=== PATIENT | female | born 1990 ===

== ENCOUNTER 2017-03-18 06:39 | Inpatient (IN) | payer BC, OTHER ==
[2017-03-11 09:59] VITALS: BMI 28.3
[2017-03-18 07:22] LABS: HEMOGLOBIN 11.7 g/dL (12.0-16.0); MEAN CELL VOLUME 80.5 fl (81.0-99.0); MEAN CORPUSCULAR HEMOGLOBIN 25.8 pg (27.0-31.0); MEAN CORPUSCULAR HGB CONC 32.1 g/dL (33.0-37.0); RBC 4.55 Mil/uL (3.80-5.20); RED CELL DISTRIBUTION WIDTH 15.2 % (11.5-14.5); WHITE BLOOD COUNT 6.6 K/uL (4.8-10.8)
[2017-03-18 07:28] LABS: BLOOD UREA NITROGEN 16 mg/dl (7-17); CALCIUM 9.1 mg/dL (8.4-10.2); GFR AFRICAN-AMERICAN > 60; GFR NON-AFRICAN AMERICAN > 60
[2017-03-18] MEDS ORDERED: Propofol 10 mg/ml Inj (20 ML) ONE ×2 (07:29→10:11)
[2017-03-18] MEDS ORDERED: Succinylcholine 200 mg/10 ml Inj IV ONE (07:31)
[2017-03-18] MEDS ORDERED: Midazolam 2 MG/2 ML VIAL ONE (07:31)
[2017-03-18] MEDS ORDERED: ePHEDrine 50 mg/ml Inj ONE (07:31)
[2017-03-18] MEDS ORDERED: Lidocaine 4% (Laryng-O-Jet) Kit MM ONE (07:32)
[2017-03-18] MEDS ORDERED: Rocuronium 10 mg/ml (5 ml) ONE (07:33)
[2017-03-18] MEDS ORDERED: Vasopressin 20 Units/ml Inj ONE (07:53)
[2017-03-18] MEDS ORDERED: Bupivacaine 0.5% Inj(30mL) ONE (07:54)
--- NOTE | 2017-03-18 08:05 | CP.PCM.HP ---
History of Present Illness - History of Present Illness History of Present Illness: The patient is a 26 y/o who presents to the hospital for managment of symptomatic fibroid uterus Present on Admission - Present on Admission Any Indicators Present on Admission: No Review of Systems - Reproductive: Female Reproductive:Female: Heavy Menses Additional comments: pelvic pain pressure Past Patient History - Past Medical History & Family History Past Medical History?: No - Past Social History Smoking Status: Never Smoked Chewing Tobacco Use: No Cigar Use: No Alcohol: Occasional Drugs: Denies - CARDIAC Hx Cardiac Disorders: No - PULMONARY Hx Respiratory Disorders: No - NEUROLOGICAL Hx Neurological Disorder: No - HEENT Hx HEENT Problems: No - RENAL Hx Chronic Kidney Disease: No - ENDOCRINE/METABOLIC Hx Endocrine Disorders: No - HEMATOLOGICAL/ONCOLOGICAL Hx Blood Disorders: No - INTEGUMENTARY Hx Dermatological Problems: No - MUSCULOSKELETAL/RHEUMATOLOGICAL Hx Musculoskeletal Disorders: No - GASTROINTESTINAL Hx Gastrointestinal Disorders: No - GENITOURINARY/GYNECOLOGICAL Hx Genitourinary Disorders: No - PSYCHIATRIC Hx Psychophysiologic Disorder: No - SURGICAL HISTORY Hx Surgeries: No - ANESTHESIA Hx Anesthesia: No Hx Anesthesia Reactions: No Hx Malignant Hyperthermia: No Has any member of the family had a problem w/ anesthesia?: No Meds Allergies/Adverse Reactions: Allergies Allergy/AdvReac Type Severity Reaction Status Date / Time No Known Allergies Allergy Verified 03/11/17 09:59 Results - Vital Signs Recent Vital Signs: Last Vital Signs Temp 98.3 F 03/18/17 07:15 Pulse 78 03/18/17 07:15 Resp 18 03/18/17 07:15 BP 132/72 03/18/17 07:15 Pulse Ox 99 03/18/17 07:15 - Labs Result Diagrams: 03/18/17 07:00 03/18/17 07:00 Labs: Laboratory Results - last 24 hr 03/18/17 03/18/17 03/18/17 07:00 07:00 07:00 WBC 6.6 RBC 4.55 Hgb 11.7 L Hct 36.6 MCV 80.5 L MCH 25.8 L MCHC 32.1 L RDW 15.2 H Plt Count 174 Sodium 140 Potassium 4.3 Chloride 107 Carbon Dioxide 23 Anion Gap 14 BUN 16 Creatinine 0.6 L Est GFR ( Amer) > 60 Est GFR (Non-Af Amer) > 60 Random Glucose 101 Calcium 9.1 BBK History Checked No verified bt Assessment & Plan - Assessment and Plan (Free Text) Assessment: 26 y/o symptomatic fibroid uterus informed consent obtained discussed r/b/a to procedure discusssed bleeding infection organ injury to bowel bladder ureter all questions answered patient agree to plan of care will admit for post op pain management - Date & Time Date: 03/18/17 Time: 08:05
[2017-03-18] MEDS ORDERED: Dexamethasone 4 mg/1 ml ONE (08:22)
[2017-03-18] MEDS ORDERED: Lactated Ringer's 1,000 ML IV ONE ×3 (08:41→09:50)
[2017-03-18] MEDS ORDERED: Desflurane Inhalation Anesthetic Liq (240 ml) ONE (09:22)
[2017-03-18] MEDS ORDERED: HYDROmorphone 0.5 mg/0.5 ml ISec ONE (10:27)
[2017-03-18] MEDS ORDERED: Naloxone 0.4 mg/ml Inj (Adult) IVP PRN (10:27)
[2017-03-18] MEDS ORDERED: DiphenhydrAMINE 50 mg/ml Inj IVP PRN (10:27)
--- NOTE | 2017-03-18 10:33 | PCM.SURG1 ---
Surgeon's Initial Post Op Note - Surgeon's Notes Surgeon: Dr. Mendoza Biologist: Alphonse German PGY2 Type of Anesthesia: General Endo Pre-Operative Diagnosis: large fibroids Operative Findings: multiple fibroids, endometrioma/hemorrhagic cyst. Post-Operative Diagnosis: Fibroids, hemorrhagic L cyst Operation Performed: Laparotomy, meyomectomy, cystectomy. Specimen/Specimens Removed: 17 multiple size fibroids. L endometrioma/ hemorrhagic cyst Estimated Blood Loss: EBL {In ML}: 100 Blood Products Given: N/A Drains Used: No Drains Post-Op Condition: Good Date of Surgery/Procedure: 03/18/17 Time of Surgery/Procedure: 10:35
[2017-03-18] MEDS: HYDROmorphone 0.5 mg/0.5 ml ISec IVP PRN ×3 (10:40→11:25)
[2017-03-18] MEDS ORDERED: ceFAZolin 2 GM in Sodium Chloride 0.9% 100 ML IVPB ONE (12:38)
[2017-03-18] MEDS: Lactated Ringer's 1,000 ML IV SCH ×3 (13:34→21:32)
[2017-03-18] MEDS: Sodium Chloride 0.9% 1,000 ML IV SCH ×2 (13:35→21:33)
--- NOTE | 2017-03-18 19:26 | OP ---
PROCEDURE DATE: PREOPERATIVE DIAGNOSIS: Symptomatic fibroid uterus. POSTOPERATIVE DIAGNOSIS: Symptomatic fibroid uterus. OPERATION PERFORMED: Laparotomy, myomectomy, left ovarian cystectomy. SURGEON: Dr. Allan Mendoza. CHANNEL PARTNERS: Dr. Nikko Roy. TYPE OF ANESTHESIA: General. ANESTHESIA ADMINISTERED BY: Dr. Huntley. OPERATIVE FINDINGS: A 20-week size uterus with multiple fibroids, the largest approximately 10 cm in size,17 fibroids were removed. There was a normal tubes bilaterally. Right ovary appeared normal, left ovary has a what appear to be hemorrhagic cyst possible endometrioma. The assistant manager/embalmer was Dr. Nikko Roy, he was instrumental in the care of the patient. He helped to create exposure obtaining hemostasis. He helped to extract the fibroids and was helpful in closing the patient. Procedure would not have been possible without his assistance. IV FLUID INTAKE: The patient received approximately 2500 mL of D5 in OR intraoperatively. ESTIMATED BLOOD LOSS: 500 mL. URINE OUTPUT: Chamberlain catheter put out approximately 500 mL of clear urine. DESCRIPTION OF PROCEDURE: After informed consent was obtained, the patient was taken to the operating room where she was general anesthesia. The patient was prepped and draped in the usual sterile fashion. A Pfannenstiel skin incision was then made with the scalpel carried down to the underlying layer of fascia. The fascia was nicked in the midline. The fascial incision was then extended laterally with a curved Gordon scissors. The superior aspect of the fascial incision was then grasped with Nelda clamps, elevated up and the rectus muscles were dissected off using both sharp and blunt dissection. Attention was then turned to the inferior aspect of the fascial incision which in a similar fashion was grasped with curved clamps and elevated up and the rectus muscles were dissected off using both sharp and blunt dissection. The rectus muscles were then in the midline. The peritoneum denitrified and entered sharply with the Metzenbaum scissors. The peritoneal incision was then extended superiorly and inferiorly with good visualization of the bladder. The abdomen was then surveyed with findings noted above. The uterus was manually extracted from the abdomen. There was a prominent 10 cm fundal myoma and multiple smaller myomas located posteriorly. Attention was then turned to the posterior aspect of this uterus and was injected with Pitocin, approximately 4 cm vertical incision was made and using breast clamps, the fibroids were extracted using blunt and sharp dissection. This procedure was repeated serially to approximately 16 fibroids were extracted. Attention was then turned to the uterine defect and it was closed in layers. The myometrium was closed with 0-Vicryl in a running locked fashion. A second layer was used to reapproximate the myometrium and it was closed in a running locked fashion. The serosa was closed with 2-0 in a running fashion. Hemostasis was noted. Attention was then turned to the large fundal myoma. Pitocin was interacted and the vertical incision was made with a fibroid. The fibroid was extracted using both sharp and blunt dissection.. All specimens were sent to pathology. The uterine defect was repaired with 0-Vicryl in a running locked fashion. The myometrium was closed with 0-Vicryl in a running locked fashion. The serosa was closed with a Vicryl in a running fashion. Attention was then turned to the left ovarian cyst where ovarian cortex was scored. The cyst wall was dissected using both sharp and blunt dissection. The ovary was closed with 2-0 Vicryl. Hemostasis was noted. The abdomen was then copiously irrigated. The irrigant was removed with a suction device. Hemostasis was noted. We then proceed to close the patient. The peritoneum was closed with 2-0 Vicryl in a running fashion. The muscle was reapproximated with 0-Vicryl in an interrupted fashion. The fascia was closed with 0-Vicryl in a running fashion. The skin was closed with 4-0 Carlin needle. All sponge, lap, needle and instrument counts were correct x2, and the patient was taken to the recovery room in awake and stable condition. Allan Mendoza MD
[2017-03-19] MEDS: Lactated Ringer's 1,000 ML IV SCH ×2 (02:25→10:21)
[2017-03-19] MEDS ORDERED: ceFAZolin 1 GM in Sodium Chloride 0.9% 100 ML IVPB ONE (06:00)
[2017-03-19] MEDS: Sodium Chloride 0.9% 1,000 ML IV SCH (06:50)
--- NOTE | 2017-03-19 08:28 | CP.PCM.PN ---
Subjective - Date & Time of Evaluation Date of Evaluation: 03/19/17 Time of Evaluation: 08:26 - Subjective Subjective: POWER PRESS TENDER for Dr. Mendoza Pt s&e. Pt had surgery yesterday and tolerated it well. Denies F/C/N/V/D/CP/ SOB. Pain controlled. Objective - Vital Signs/Intake and Output Vital Signs (last 24 hours): Temp Pulse Resp BP Pulse Ox 98.7 F 77 20 108/65 100 03/19/17 08:24 03/19/17 08:24 03/19/17 08:24 03/19/17 08:24 03/19/17 08:24 - Medications Medications: Current Medications Acetaminophen (Tylenol 325mg Tab) 650 mg PO Q4 PRN PRN Reason: Fever >100.4 F Diphenhydramine HCl (Benadryl) 25 mg IVP Q6 PRN PRN Reason: Itching / Pruritus Hydromorphone HCl (Dilaudid) 0.5 mg IVP Q5M PRN PRN Reason: Pain, moderate (4-7) Last Admin: 03/18/17 11:25 Dose: 0.5 mg Hydromorphone HCl (Dilaudid 0.2 Mg/Ml Cracking Machine Operator) 0 mg IV PRN PRN; Protocol PRN Reason: Pain, moderate (4-7) Last Admin: 03/19/17 07:01 Dose: 6 mg Lactated Ringer's (Lactated Ringer's) 1,000 mls @ 125 mls/hr IV .Q8H [facility] Last Admin: 03/19/17 02:25 Dose: Not Given Sodium Chloride (Sodium Chloride 0.9%) 1,000 mls @ 100 mls/hr IV .Q10H [facility] Stop: 03/19/17 10:39 Last Admin: 03/19/17 06:50 Dose: Not Given Ibuprofen (Motrin Tab) 800 mg PO Q8 DAI Naloxone HCl (Narcan) 0.1 mg IVP Q2M PRN PRN Reason: Opiate reversal Ondansetron HCl (Zofran Inj) 4 mg IVP Q4 PRN PRN Reason: Nausea/Vomiting Last Admin: 03/18/17 17:34 Dose: 4 mg - Labs Labs: 03/18/17 07:00 03/18/17 07:00 - Constitutional Appears: No Acute Distress - Head Exam Head Exam: ATRAUMATIC, NORMAL INSPECTION, NORMOCEPHALIC - Eye Exam Eye Exam: EOMI, Normal appearance, PERRL Pupil Exam: NORMAL ACCOMODATION, PERRL - ENT Exam ENT Exam: Mucous Membranes Moist, Normal Exam
[2017-03-19] MEDS ORDERED: Oxycodone/Acetaminophen 5/325 mg Tab PO PRN (11:30)
[2017-03-19 12:08] LABS: BASO % 0.3 % (0.0-2.0); EOS % 0.1 % (0.0-4.0); HEMOGLOBIN 9.2 g/dL (12.0-16.0); LYMPH # 1.2 K/uL (1.0-4.3); LYMPH % 11.3 % (20.0-40.0); MEAN CORPUSCULAR HGB CONC 32.5 g/dL (33.0-37.0); MEAN PLATELET VOLUME 8.5 fl (7.2-11.7); MONO # 1.1 K/uL (0.0-0.8); MONO % 10.6 % (0.0-10.0); NEUT # 8.1 K/uL (1.8-7.0); NEUT % 77.7 % (50.0-75.0); RBC 3.54 Mil/uL (3.80-5.20); WHITE BLOOD COUNT 10.4 K/uL (4.8-10.8)
[2017-03-19] MEDS: Simethicone 80 mg Chewtab PO PRN (20:34)
[2017-03-20 04:22] VITALS: O2SAT 98
[2017-03-20] MEDS: Simethicone 80 mg Chewtab PO PRN ×2 (06:38→09:55)
[2017-03-20 08:25] VITALS: BP 105/68; PULSE 86; RESP 20; TEMP 99.8
[2017-03-20] MEDS: Lactated Ringer's 1,000 ML IV SCH ×2 (09:56→10:03)
--- NOTE | 2017-03-20 12:18 | CP.PCM.DIS ---
Provider - Provider Date of Admission: 03/18/17 12:09 Attending physician: Allan Mendoza MD Primary care physician: Allan Mendoza MD Time Spent in preparation of Discharge (in minutes): 35 Diagnosis - Discharge Diagnosis (1) Fibroid, uterine Status: Acute Hospital Course - Lab Results Lab Results: Most Recent Lab Values WBC 10.4 K/uL (4.8-10.8) D 03/19/17 11:20 RBC 3.54 Mil/uL (3.80-5.20) L 03/19/17 11:20 Hgb 9.2 g/dL (12.0-16.0) L D 03/19/17 11:20 Hct 28.3 % (34.0-47.0) L 03/19/17 11:20 MCV 80.0 fl (81.0-99.0) L 03/19/17 11:20 MCH 26.0 pg (27.0-31.0) L 03/19/17 11:20 MCHC 32.5 g/dL (33.0-37.0) L 03/19/17 11:20 RDW 15.0 % (11.5-14.5) H 03/19/17 11:20 Plt Count 134 K/uL (130-400) 03/19/17 11:20 MPV 8.5 fl (7.2-11.7) 03/19/17 11:20 Neut % (Auto) 77.7 % (50.0-75.0) H 03/19/17 11:20 Lymph % (Auto) 11.3 % (20.0-40.0) L 03/19/17 11:20 [place] % (Auto) 10.6 % (0.0-10.0) H 03/19/17 11:20 Eos % (Auto) 0.1 % (0.0-4.0) 03/19/17 11:20 Baso % (Auto) 0.3 % (0.0-2.0) 03/19/17 11:20 Neut # 8.1 K/uL (1.8-7.0) H 03/19/17 11:20 Lymph # 1.2 K/uL (1.0-4.3) 03/19/17 11:20 [place] # 1.1 K/uL (0.0-0.8) H 03/19/17 11:20 Eos # 0.0 K/uL (0.0-0.7) 03/19/17 11:20 Baso # 0.0 K/uL (0.0-0.2) 03/19/17 11:20 Sodium 140 mmol/l (132-148) 03/18/17 07:00 Potassium 4.3 MMOL/L (3.6-5.0) 03/18/17 07:00 Chloride 107 mmol/L (98-107) 03/18/17 07:00 Carbon Dioxide 23 mmol/L (22-30) 03/18/17 07:00 Anion Gap 14 (10-20) 03/18/17 07:00 BUN 16 mg/dl (7-17) 03/18/17 07:00 Creatinine 0.6 mg/dL (0.7-1.2) L 03/18/17 07:00 Est GFR ( Amer) > 60 03/18/17 07:00 Est GFR (Non-Af Amer) > 60 03/18/17 07:00 Random Glucose 101 mg/dL (65-105) 03/18/17 07:00 Calcium 9.1 mg/dL (8.4-10.2) 03/18/17 07:00 Blood Type O POSITIVE 03/18/17 07:00 Blood Type Confirm O POSITIVE 03/18/17 09:50 Antibody Screen Negative 03/18/17 07:00 BBK History Checked No verified bt 03/18/17 07:00 - Hospital Course Hospital Course: 26 F who presents to the hospital for management of symptomatic fibroid uterus. On 03/18 patient had Laparotomy, myomectomy, and cystectomy where she had 17 multiple size fibroids and Left endometrioma/hemorrhagic cyst removed. Patient recovering from surgery. Her vital signs stable and labs within normal limits. Patient tolerating oral intake and passing gas. Patient is ambulating without difficulty. Hospital course otherwise uneventful. Patient is medically stable for discharge as per Dr. Mendoza. Patient is to take Motrin and Percocet as prescribed for pain. Patient is to follow up with Dr. Mendoza within 1 week of discharge. Refrain from any heavy lifting. Keep incisions clean and dry. Eat soups, salads, fruits, and vegetable rich diet at least until BM. Please call Dr. Mendoza for any issues. Discharge Exam - Head Exam Head Exam: ATRAUMATIC, NORMAL INSPECTION, NORMOCEPHALIC - Eye Exam Eye Exam: Normal appearance - ENT Exam ENT Exam: Mucous Membranes Moist - Respiratory Exam Respiratory Exam: NORMAL BREATHING PATTERN - Cardiovascular Exam Cardiovascular Exam: REGULAR RHYTHM - GI/Abdominal Exam GI & Abdominal Exam: Soft, Tenderness (at incisions). absent: Distended, Firm, Guarding, Rebound, Rigid - Back Exam Back exam: absent: CVA tenderness (L), CVA tenderness (R) - Neurological Exam Neurological exam: Alert, CN II-XII Intact, Oriented x3 - Psychiatric Exam Psychiatric exam: Normal Affect, Normal Mood - Skin Skin Exam: Dry, Intact, Normal Color, Warm Discharge Plan - Follow Up Plan Condition: GOOD Disposition: HOME/ ROUTINE Additional Instructions: Patient is medically stable for discharge as per Dr. Mendoza. Patient is to take Motrin and Percocet as prescribed for pain. Patient is to follow up with Dr. Mendoza within 1 week of discharge. Refrain from any heavy liffting. Keep incisions clean and dry. Eat soups, salads, fruits, and vegetable rich diet at least until BM. Please call Dr. Mendoza for any issues. Referrals: Allan Mendoza MD [Primary Care Provider] -
--- NOTE | 2017-03-20 13:26 | CP.PCM.PN ---
Subjective - Date & Time of Evaluation Date of Evaluation: 03/20/17 Time of Evaluation: 11:45 - Subjective Subjective: Patient is a nullparous female, POD#2 s/p Abdominal Myomectomy. Patient denies CP, no SOB, no N/V, tolerating PO diet, abdominal pain tolerable with meds, mild vaginal bleeding, +flatus, ambulating/voiding well. Objective - Vital Signs/Intake and Output Vital Signs (last 24 hours): Temp Pulse Resp BP Pulse Ox 99.8 F H 86 20 105/68 98 03/20/17 08:24 03/20/17 08:24 03/20/17 08:24 03/20/17 08:24 03/20/17 08:24 - Medications Medications: Current Medications Acetaminophen (Tylenol 325mg Tab) 650 mg PO Q4 PRN PRN Reason: Fever >100.4 F Diphenhydramine HCl (Benadryl) 25 mg IVP Q6 PRN PRN Reason: Itching / Pruritus Docusate Sodium (Colace) 100 mg PO DAILY [facility] Last Admin: 03/20/17 09:56 Dose: 100 mg Hydromorphone HCl (Dilaudid) 0.5 mg IVP Q5M PRN PRN Reason: Pain, moderate (4-7) Last Admin: 03/18/17 11:25 Dose: 0.5 mg Lactated Ringer's (Lactated Ringer's) 1,000 mls @ 125 mls/hr IV .Q8H [facility] Last Admin: 03/20/17 10:03 Dose: Not Given Ibuprofen (Motrin Tab) 800 mg PO Q8@0600,1400,2200 [facility] Naloxone HCl (Narcan) 0.1 mg IVP Q2M PRN PRN Reason: Opiate reversal Ondansetron HCl (Zofran Inj) 4 mg IVP Q4 PRN PRN Reason: Nausea/Vomiting Last Admin: 03/19/17 20:32 Dose: 4 mg Oxycodone/Acetaminophen (Percocet 5/325 Mg Tab) 1 tab PO Q4 PRN PRN Reason: Pain, moderate (4-7) Stop: 03/22/17 11:31 Last Admin: 03/19/17 13:09 Dose: 1 tab Simethicone (Mylicon Chew Tab) 80 mg PO TID PRN PRN Reason: Flatulence Last Admin: 03/20/17 09:55 Dose: 80 mg - Labs Labs: 03/19/17 11:20 03/18/17 07:00 - Head Exam Head Exam: ATRAUMATIC - Eye Exam Eye Exam: Normal appearance Pupil Exam: NORMAL ACCOMODATION - Respiratory Exam Respiratory Exam: NORMAL BREATHING PATTERN - Cardiovascular Exam Cardiovascular Exam: REGULAR RHYTHM - GI/Abdominal Exam GI & Abdominal Exam: Soft, Normal Bowel Sounds Additional comments: no rebound, no gaurding, +BS, Incision clean/dry/intact - Exam External exam: NORMAL EXTERNAL EXAM Assessment and Plan - Assessment and Plan (Free Text) Assessment: A/P Patient is 26 yo s/p Abdominal Myomectomy POD #2 1. Patient recovering well, stable for discharge 2. Discharge instructions reviewed with patient. All questions answered. Patient to follow up in 2 wks in the office
== END 2017-03-20 15:30 | disposition home or self-care (01) | DRG 743 ==
LOC: H.OPSURG 06:39 → H.MEDSURG1 12:09
PROVIDERS: ADMIT Obstetrics & Gynecology Gynecology; ATTEND Obstetrics & Gynecology Gynecology
PROC: 0UB10ZZ Excision of Left Ovary, Open Approach (ICD-10-PCS; 2017-03-18)
PROC: 0UB90ZZ Excision of Uterus, Open Approach (ICD-10-PCS; principal; 2017-03-18 07:45)
DX: D25.9 Leiomyoma of uterus, unspecified (principal); N80.1 Endometriosis of ovary; N83.202 Unspecified ovarian cyst, left side